=== PATIENT | male | born 1960 | race Caucasian/White ===

== ENCOUNTER 2018-02-10 05:47 | Observation (INO) | payer BC ==
[~2018-02-10] VITALS: Ht 180.3 cm; Wt 133.0 kg
[2018-02-10 06:09] VITALS: BP 143/89
[2018-02-10] MEDS ORDERED: ATOR80TA PO (06:22)
[2018-02-10] MEDS ORDERED: OXYC-307 PO (06:22)
[2018-02-10] MEDS ORDERED: WARF6TAB47 PO (06:22)
[2018-02-10] MEDS ORDERED: OXYC10TA6 PO ×2 (06:22→12:18)
[2018-02-10] MEDS ORDERED: TADA5TAB2 PO (06:22)
[2018-02-10] MEDS ORDERED: GABAPENTIN 300 MG CAPSULE PO ONE (06:30)
[2018-02-10] MEDS ORDERED: ACETAMINOPHEN 500 MG TABLET PO ONE (06:30)
[2018-02-10] MEDS ORDERED: ROPIvacaine/PF 0.2%, 20 ML ONE (07:02)
[2018-02-10] MEDS ORDERED: KETOROLAC 60 MG/2 ML ONE (07:02)
[2018-02-10] MEDS ORDERED: TRANEXAMIC ACID 100 MG/ML, 10ML ONE ×5 (07:02→07:03)
[2018-02-10] MEDS ORDERED: EPINEPHRINE 1 MG/ML, 1ML ONE (07:03)
[2018-02-10] MEDS: LACTATED RINGERS 1,000 ML IV SCH ×2 (07:16→10:39)
[2018-02-10] MEDS ORDERED: MIDAZOLAM 1 MG/ML, 2ML ONE (07:23)
[2018-02-10] MEDS ORDERED: FENTANYL PF 250 MCG/5ML ONE (07:23)
[2018-02-10] MEDS ORDERED: SENNA/DOCUSATE TABLET PO PRN (07:30)
[2018-02-10] MEDS ORDERED: MAGNESIUM HYDROXIDE 8%, 30ML UDC PO PRN (07:30)
[2018-02-10] MEDS ORDERED: PROMETHAZINE 12.5 MG SUPP PR PRN (07:30)
[2018-02-10] MEDS ORDERED: ACETAMINOPHEN 650 MG/20.3 ML UDC PO PRN (07:30)
[2018-02-10] MEDS ORDERED: HYDROmorphone 1 MG/ML, 1ML IV PRN (07:30)
[2018-02-10] MEDS ORDERED: ALUMINUM/MAG/SIMETHICONE 30 ML UDC PO PRN (07:30)
[2018-02-10] MEDS ORDERED: PROMETHAZINE 25 MG/ML, 1ML IM PRN (07:30)
[2018-02-10] MEDS ORDERED: DIAZEPAM 5 MG/ML, 2ML IVPush PRN (07:30)
[2018-02-10] MEDS ORDERED: MORPHINE SULFATE 4 MG/ML, 1ML IVPush PRN (07:30)
[2018-02-10] MEDS ORDERED: DIPHENHYDRAMINE 25 MG CAPSULE PO PRN (07:30)
[2018-02-10] MEDS ORDERED: ONDANSETRON 4 MG TABLET PO PRN (07:30)
[2018-02-10] MEDS ORDERED: MEPERIDINE/PF 25MG/0.5ML IVPush PRN (07:30)
[2018-02-10] MEDS ORDERED: PROMETHAZINE 25 MG/ML, 1ML IV PRN (07:30)
[2018-02-10] MEDS ORDERED: ONDANSETRON 2MG/ML, 2ML IV PRN ×2 (07:30)
[2018-02-10 07:49] LABS: INTERNATIONAL NORMALIZED RATIO 1.53 (0.93-1.1); PROTHROMBIN TIME 15.6 Seconds (9.6-11.5)
[2018-02-10] MEDS ORDERED: CEFAZOLIN 1,000 MG ONE (08:00)
[2018-02-10] MEDS ORDERED: PROPOFOL 10 MG/ML, 20ML ONE (08:00)
[2018-02-10] MEDS ORDERED: ONDANSETRON 2MG/ML, 2ML ONE (08:00)
[2018-02-10] MEDS ORDERED: DEXAMETHASONE 4 MG/ML, 1ML ONE (08:00)
[2018-02-10] MEDS ORDERED: TRANEXAMIC ACID 1,000 MG in SODIUM CHLORIDE 0.9% 100 ML IVPB ONE (09:00)
[2018-02-10] MEDS ORDERED: DOCUSATE 100 MG CAPSULE PO SCH (09:00)
[2018-02-10] MEDS ORDERED: TAMSULOSIN 0.4 MG CAP.ER.24H PO SCH (09:00)
[2018-02-10] MEDS ORDERED: FENTANYL PF 100 MCG/2ML ONE (09:19)
[2018-02-10] MEDS ORDERED: OXYcodone 5 MG/5 ML ORAL.SOL UDC ONE ×2 (09:20→09:44)
[2018-02-10] MEDS: FENTANYL PF 100 MCG/2ML IV PRN ×2 (09:21→09:29)
[2018-02-10] MEDS: OXYcodone 5 MG/5 ML ORAL.SOL UDC PO PRN ×2 (09:22→09:45)
[2018-02-10] MEDS ORDERED: HYDROmorphone 2 MG/ML, 1ML ONE (09:37)
[2018-02-10] MEDS: HYDROmorphone 1 MG/ML, 1ML IV PRN ×3 (09:40→09:58)
[2018-02-10 10:30] VITALS: BP 137/92
[2018-02-10] MEDS ORDERED: D5%-0.45NACL+KCL 20MEQ 1,000 ML IV SCH (10:32)
[2018-02-10] MEDS: OXYcodone IR 5MG TABLET PO PRN ×3 (10:52→17:35)
[2018-02-10] MEDS ORDERED: ONDA4TAB10 PO (12:15)
[2018-02-10] MEDS ORDERED: CELE200C PO (12:16)
[2018-02-10] MEDS ORDERED: DOCU-131 PO (12:16)
[2018-02-10] MEDS ORDERED: TRAM50TA2 PO (12:17)
[2018-02-10] MEDS ORDERED: CEFAZOLIN PMX 1GM/50ML 50 ML IVPB SCH (15:00)
[2018-02-10 15:27] VITALS: BP 125/63
[2018-02-10] MEDS ORDERED: LABETALOL 5MG/ML, 20ML ONE (16:20)
[2018-02-10] MEDS ORDERED: ATORVASTATIN 80 MG TABLET PO SCH (21:00)
[2018-02-11] MEDS ORDERED: DEXAMETHASONE 4 MG/ML, 1ML IVPush SCH (06:00)
[2018-02-11] MEDS ORDERED: KETOROLAC 30 MG/1 ML IV SCH (07:30)
[2018-02-11] MEDS ORDERED: WARFARIN 3 MG TABLET PO-COUM SCH (09:00)
== END 2018-02-10 18:20 | disposition home or self-care (01) ==
LOC: OUT 05:47 → ORIP 07:15 → 4NOR 10:20
PROVIDERS: ADMIT Orthopaedic Surgery; ATTEND Orthopaedic Surgery
DX: M17.12 Unilateral primary osteoarthritis, left knee (principal); Z79.01 Long term (current) use of anticoagulants
CPT/HCPCS: 27447; 36415; 73560; 85610; 85730; 93005; 96365; 97110; 97161; C1713; C1776; G0378; J0171; J0690; J1100; J1170; J1885; J2250; J2405; J2704; J2795; J3010; J3480; J7120